=== PATIENT | male | born 1945 | race African-American/Black ===

== ENCOUNTER 2018-08-23 08:03 | Emergency (ER) | payer MEDICARE ==
[~2018-08-23] VITALS: Ht 172.7 cm; Wt 81.6 kg
[2018-08-23] MEDS ORDERED: DEXAMETHASONE 4 MG TABLET PO ONE (08:30)
--- NOTE | 2018-08-23 08:39 | PHYS DOC ---
Past Medical History Additional Past Medical Histor: Gout Past Surgical History: Other Additional Past Surgical Histo: hydrocele, bilateral inguinal hernia repair Smoking: Less than 1pk/day (1/2) Alcohol Use: Occasionally Drug Use: None Adult General Chief Complaint Chief Complaint: KNEE SWELLING HPI HPI 72-year-old male presents with left knee swelling and tenderness with walking which is been ongoing since yesterday. Patient reports history of gout. Reports he is concerned for possible flare. Reports last week had similar flare to bilateral hands which is now improved. Reports seems to occur after patient has been drinking alcohol or eating "heavy foods ". Denies known trauma. Denies fever or chills. Review of Systems Review of Systems Constitutional: Denies fever or chills [] Eyes: Denies change in visual acuity, redness, or eye pain [] HENT: Denies nasal congestion or sore throat [] Respiratory: Denies cough or shortness of breath [] Cardiovascular: Denies chest pain or palpitations GI: Denies abdominal pain, nausea, vomiting, bloody stools or diarrhea [] : Denies dysuria or hematuria [] Musculoskeletal: Reports knee pain and swelling Integument: Denies laceration or abrasion; reports swelling of left knee[] Neurologic: Denies headache, focal weakness or sensory changes [] Complete systems were reviewed and found to be within normal limits, except as documented in this note. Current Medications Current Medications Current Medications Medications (Trade) Dose Ordered Sig/Inez Start Time Stop Time Status Last Admin Dose Admin Dexamethasone (Decadron) 10 mg 1X ONCE 08/23/18 08:30 08/23/18 08:33 DC Naproxen (Naprosyn) 500 mg 1X ONCE 08/23/18 08:45 08/23/18 08:46 DC Allergies Allergies Allergies Coded Allergies Type Severity Reaction Last Updated Verified No Known Drug Allergies 08/27/15 No Physical Exam Physical Exam Constitutional: Well developed, well nourished, no acute distress, non-toxic appearance. [] HENT: Normocephalic, atraumatic Eyes: conjunctiva normal, no discharge. [] Neck: Normal range of motion, no tenderness, supple, no stridor. [] Skin: Warm, dry, no erythema, no rash. [] Extremities: Left knee edema noted, mild erythema and increased warmth, Patella with mild ballotment, left posterior tibialis +2/4, ROM limited due to swelling Neurologic: Alert and oriented X 3, normal motor function, normal sensory function, no focal deficits noted. [] Psychologic: Affect normal, judgement normal, mood normal. [] Current Patient Data Vital Signs Vital Signs Date Time Temp Pulse Resp B/P (MAP) Pulse Ox O2 Delivery O2 Flow Rate FiO2 08/23/18 08:22 97.5 79 20 163/91 (115) 97 Room Air 97.5 EKG EKG [] Radiology/Procedures Radiology/Procedures PROCEDURE: KNEE LEFT 3V Left knee, 3 views, 08/23/2018: HISTORY: Pain and swelling, gout The bony structures are demineralized. There is moderate joint space narrowing and marginal spurring. No fracture or dislocation is identified. No bone erosions are seen. There is soft tissue fullness in the suprapatellar bursa region compatible with a large joint effusion. Moderate arterial calcifications are present. IMPRESSION: 1. Moderate degenerative change. 2. No acute bony abnormality is detected. 3. Large joint effusion. Electronically signed by: Waqas Zuniga MD (08/23/2018 8:47 AM) [facility] Course & Med Decision Making Course & Med Decision Making Pertinent Labs and Imaging studies reviewed. (See chart for details) Patient presents with history of present illness and physical exam concerning for joint effusion of left knee. Patient reports history of gout. No history of known trauma. Symptomatic treatment provided. X-ray with signs of arthritis as well as large joint effusion. Harpreet wrap and crutches provided. Patient stable for discharge with outpatient follow-up with PCP/orthopedics. Orthopedic referral provided. Discussed findings and plan with patient, who acknowledges understanding and agreement. Dragon Disclaimer Dragon Disclaimer This electronic medical record was generated, in whole or in part, using a voice recognition dictation system. Departure Departure Impression: Primary Impression: Knee effusion, left Additional Impression: Arthritis Disposition: 01 HOME, SELF-CARE Condition: STABLE Referrals: NO PCP (PCP) ALICIA EDWARDS II, MD Patient Instructions: Arthritis, Nonspecific, [id number], Knee Effusion, Easy -to-Read Scripts Naproxen (NAPROXEN) 500 Mg Tablet 1 TAB PO BID, #30 TAB 0 Refills Prov: ROSEMARY DEL CASTILLO DO 08/23/18 Prednisone (PREDNISONE) 20 Mg Tablet 2 TAB PO DAILY, #8 TAB Start on Thursday08/24/18 Prov: ROSEMARY DEL CASTILLO DO 08/23/18 Problem Qualifiers ROSEMARY DEL CASTILLO DO Aug 23, 2018 08:39
[2018-08-23] MEDS ORDERED: NAPROXEN 500 MG TABLET PO ONE (08:45)
--- NOTE | 2018-08-23 08:51 | RAD ---
Left knee, 3 views, 08/23/2018: HISTORY: Pain and swelling, gout The bony structures are demineralized. There is moderate joint space narrowing and marginal spurring. No fracture or dislocation is identified. No bone erosions are seen. There is soft tissue fullness in the suprapatellar bursa region compatible with a large joint effusion. Moderate arterial calcifications are present. IMPRESSION: 1. Moderate degenerative change. 2. No acute bony abnormality is detected. 3. Large joint effusion. Electronically signed by: Waqas Zuniga MD (08/23/2018 8:47 AM) [facility]
[2018-08-23] MEDS ORDERED: NAPR-514 PO (08:53)
[2018-08-23] MEDS ORDERED: PRED20TA PO (08:53)
[2018-08-23 09:00] VITALS: BP 152/80
== END 2018-08-23 09:37 | disposition home or self-care (01) ==
LOC: ER 08:03
DX: M17.12 Unilateral primary osteoarthritis, left knee (principal); M10.9 Gout, unspecified; F17.200 Nicotine dependence, unspecified, uncomplicated; Z98.890 Other specified postprocedural states
CPT/HCPCS: 73562; 99284; J8540

== ENCOUNTER 2021-11-26 09:58 | Emergency (ER) | payer MEDICARE ==
[~2021-11-26] VITALS: Ht 172.7 cm; Wt 81.8 kg
[~2021-11-26 09:58] MED LIST: NAPR-514 PO; PRED20TA PO
[2021-11-26] MEDS ORDERED: DEXAMETHASONE SOD PHOS 20 MG/5 ML VIAL. IM ONE (11:30)
--- NOTE | 2021-11-26 11:39 | PHYS DOC ---
Past Medical History Additional Past Medical Histor: Gout Past Surgical History: Other Additional Past Surgical Histo: hydrocele, bilateral inguinal hernia repair Smoking Status: Never Smoker Alcohol Use: Occasionally Drug Use: None General Adult EDM: Chief Complaint: HAND PROBLEM HPI: HPI: Patient is a 76 year old male who presents with left hand swelling. Patient states "I had gout a couple years ago and this is exactly what it felt like". Patient has pain with range of motion. Sensations intact. Denies injury. Patient denies take anything prior to arrival for pain. Review of Systems: Review of Systems: ROS At least 10 ROS systems have been reviewed and are negative except as documented in the HPI. General: Negative except as outlined in HPI above. Skin: Negative except as outlined in HPI above. HEENT: Negative except as outlined in HPI above. Neck: Negative except as outlined in HPI above. Respiratory: Negative except as outlined in HPI above.. Cardiovascular: Negative except as outlined in HPI above. Abdomen: Negative except as outlined in HPI above. : Negative except as outlined in HPI above. Back/MSK: Negative except as outlined in HPI above. Neuro: Negative except as outlined in HPI above. Psych: Negative except as outlined in HPI above. Heart Score: C/O Chest Pain: No Risk Factors: Risk Factors: DM, Current or recent (<one month) smoker, HTN, HLP, family history of CAD, obesity. Risk Scores: Score 0 - 3: 2.5% MACE over next 6 weeks - Discharge Home Score 4 - 6: 20.3% MACE over next 6 weeks - Admit for Clinical Observation Score 7 - 10: 72.7% MACE over next 6 weeks - Early Invasive Strategies Current Medications: Current Medications Medications (Trade) Dose Ordered Sig/Inez Start Time Stop Time Status Last Admin Dose Admin Dexamethasone Sodium Phosphate (Decadron) 10 mg 1X ONCE 11/26/21 11:30 11/26/21 11:31 UNV Ketorolac Tromethamine (Toradol Im) 60 mg 1X ONCE 11/26/21 11:30 11/26/21 11:31 UNV Allergies: Allergies: Allergies Coded Allergies Type Severity Reaction Last Updated Verified No Known Drug Allergies 08/27/15 No Physical Exam: PE: Constitutional: Well developed, well nourished, no acute distress, non-toxic appearance. [] HENT: Normocephalic, atraumatic, bilateral external ears normal, oropharynx moist, no oral exudates, nose normal. [] Eyes: PERRLA, EOMI, conjunctiva normal, no discharge. [] Neck: Normal range of motion, no tenderness, supple, no stridor. [] Cardiovascular:Heart rate regular rhythm, no murmur [] Lungs & Thorax: Bilateral breath sounds clear to auscultation [] Abdomen: Bowel sounds normal, soft, no tenderness, no masses, no pulsatile masses. [] Skin: Warm, dry, no erythema, no rash. [] Back: No tenderness, no CVA tenderness. [] Extremities: Left hand tenderness, no cyanosis, no clubbing, edema, pain with ROM Neurologic: Alert and oriented X 3, normal motor function, normal sensory function, no focal deficits noted. Radial pulses intact Psychologic: Affect normal, judgement normal, mood normal. [] Current Patient Data: Vital Signs: Vital Signs Date Time Temp Pulse Resp B/P (MAP) Pulse Ox O2 Delivery O2 Flow Rate FiO2 11/26/21 10:51 98.6 79 16 142/91 (108) 97 Room Air 98.6 EKG: EKG: [] Radiology/Procedures: Radiology/Procedures: [] Course & Med Decision Making: Course & Med Decision Making Pertinent Labs and Imaging studies reviewed. (See chart for details) [] 76-year-old man seen with left hand swelling. Patient has a history of gout which is likely having exacerbation. Patient treated with IM Decadron, IM Toradol while in the ER. Sending patient home with prednisone and indomethacin. Advised patient to follow-up with his PCP. Discussed return precautions with patient. Patient verbalizes understanding. Janet Disclaimer: Janet Disclaimer: This electronic medical record was generated, in whole or in part, using a voice recognition dictation system. Departure Departure Impression: Primary Impression: Swelling of left hand Disposition: 01 HOME / SELF CARE / HOMELESS Condition: STABLE Referrals: NO PCP (PCP) Patient Instructions: Gout, [id number] Additional Instructions: You were seen in the emergency room for a exacerbation of gout. You were given medication while in the ER and sent home with 2 prescriptions. Please take as directed. Please follow-up with your PCP. Return to the emergency room if you have worsening symptoms or concerns. EMERGENCY DEPARTMENT GENERAL DISCHARGE INSTRUCTIONS Thank you for coming to [facility] Emergency Department (ED) today and trusting us with you care. We trust that you had a positive experience in our Emergency Department. If you wish to speak to the department management, you may call the Director at [phone]. YOUR FOLLOW UP INSTRUCTIONS ARE FOLLOWS: 1. Do you have a private Doctor? If you do not have a private doctor, please ask for a resource list of physicians or clinics that may be able to assist you with follow up care. 2. The Emergency Physicain has interpreted your x-rays. The X-Ray specialist will also review them. If there is a change in the findings, you will be notified in 48 hours when at all possible. 3. A lab test or culture has been done, your results will be reviewed and you will be notified if you need a change in treatment. ADDITIONAL INSTRUCTIONS AND INFORMATION: 1. Your care today has been supervised by a physician who is specially trained in emergency care. Many problems require more than one evaluation for a complete diagnosis and treatment. We recommend that you schedule your follow up appointment as recommended to ensure complete treatment of you illness or injury. If you are unable to obtain follow up care and continue to have a problem, or if your condition worsens, we recommend that you return to the ED. 2. We are not able to safely determine your condition over the phone nor are we able to give sound medical advice over the phone. For these safety reasons, if you call for medical advice we will ask you to come to the ED for further evaluation. 3. If you have any questions regarding these discharge instructions please call the ED at [phone]. SAFETY INFORMATION: In the interest of safety, wellness, and injury prevention; we encourage you to wear your sealbelt, if you smoke; quite smoking, and we encourage family to use a protective helmet for bicycling and other sporting events that present an increased risk for head injury. IF YOUR SYMPTOMS WORSEN OR NEW SYMPTOMS DEVELOP, OR YOU HAVE CONCERNS ABOUT YOUR CONDITION; OR IF YOUR CONDITION WORSENS WHILE YOU ARE WAITING FOR YOUR FOLLOW UP APPOINTMENT; EITHER CONTACT YOUR PRIMARY CARE DOCTOR, THE PHYSICIAN WHOSE NAME AND NUMBER YOU WERE GIVEN, OR RETURN TO THE ED IMMEDIATELY. Scripts Methylprednisolone (MEDROL) 4 Mg Tab.ds.pk 1 PKG PO UD for 6 Days, #1 PKG 0 Refills Prov: LOI LANE [employer]ING MACHINE BACK TENDER 11/26/21 Indomethacin (INDOMETHACIN) 25 Mg Capsule 1 CAP PO TID for arthritis for 7 Days, #21 CAP 0 Refills with food Prov: LOI LANE APRN 11/26/[address] APRN Nov 26, 2021 11:39
[2021-11-26] MEDS ORDERED: KETOROLAC 30 MG/ML VIAL. IM ONE (11:45)
[2021-11-26] MEDS ORDERED: INDO25CA21 PO (11:47)
[2021-11-26] MEDS ORDERED: METH4TAB2 PO (11:47)
[2021-11-26 11:53] VITALS: BP 132/81
== END 2021-11-26 12:07 | disposition home or self-care (01) ==
LOC: ER 09:58
DX: R22.32 Localized swelling, mass and lump, left upper limb (principal); M10.9 Gout, unspecified
CPT/HCPCS: 96372; 99284; J1100; J1885